=== PATIENT | male | born 1965 | race Caucasian/White ===

== ENCOUNTER → 2021-09-18 08:41 | Outpatient (CLI) | payer BC, SELFPAY ==
--- NOTE | ~2021-09-18 | XR_ITS ---
EXAMINATION: XR hip RT min 2V DATE: 09/18/2021 09:47 INDICATION: Right hip pain TECHNIQUE: Anteroposterior and frog-leg leg lateral views of the right hip were obtained. COMPARISON: None. FINDINGS: Alignment is normal. No fracture or suspected avascular necrosis. Right hip joint space appears relat ively preserved. Small amount of heterotopic ossification along the superolateral rim of the right ac etabulum. Mild osteoarthritis at the bilateral sacroiliac joints. A few phleboliths in the pelvis. IMPRESSION: 1. Likely labral heterotopic ossification along the superolateral rim of the right acetabulum. No acu te osseous abnormality. Reviewed, dictated and finalized at location A. M METER READER IMPRESSION: 1. Likely labral heterotopic ossification along the superolateral rim of the ri ght acetabulum. No acute osseous abnormality.
--- NOTE | ~2021-09-18 | XR_ITS ---
EXAMINATION: XR lumbar spine min 4V DATE: 09/18/2021 09:47 INDICATION: Dorsalgia TECHNIQUE: Anteroposterior, lateral, and bilateral oblique views of the lumbar spine, and cone-down l ateral view of the lumbosacral junction were obtained. COMPARISON: None. FINDINGS: Minimal lumbar levocurvature. Sagittal alignment is normal. Chronic appearing mild anterior wedging a t T12. Lumbar vertebral body and disc heights are normal with mild degenerative endplate changes. No pars interarticularis defects. Mild to moderate lower lumbar predominant facet osteoarthritis. Athero sclerotic calcific lesion along the abdominal aorta. IMPRESSION: 1. Mild to moderate lower lumbar predominant facet osteoarthritis. 2. Chronic appearing mild anterior wedging at T12. Reviewed, dictated and finalized at location A. OR SALES ASSISTANT
== END ==
PROVIDERS: PCP Physician Assistant; Visit Provider Physician Assistant
DX: M25.559 Pain in unspecified hip (principal); M54.9 Dorsalgia, unspecified
CPT/HCPCS: 72110; 73502

== ENCOUNTER → 2022-11-26 08:09 | Outpatient (CLI) | payer BC, SELFPAY ==
--- NOTE | ~2022-11-26 | MR_ITS ---
MRI of the lumbar spine Clinical History: Back pain Technique: Axial T2-weighted images, and sagittal T1-weighted, T2-weighted, and T2 fat-sat images wer e acquired. Findings: There is no fracture or subluxation of the lumbar spine. Vertebral bodies maintain normal h eight and line. No suspicious bone marrow signal abnormality seen. Intraosseous hemangioma noted in t he L3 vertebral body. At L1-L2, there is no disc bulge or herniation. There is minimal facet arthropathy. No spinal canal s tenosis or neural foraminal narrowing. At L2-L3, there is no significant disc bulge or herniation. There is no spinal canal stenosis or neur al foraminal narrowing. At L3-L4, there is mild diffuse disc bulge and minimal facet arthropathy. No spinal canal stenosis or neural foraminal narrowing. At L4-L5, there is diffuse disc bulge and advanced facet arthropathy. There is a left-sided synovial cyst measuring 1.3 x 0.7 x 1.2 cm (axial image 21, sagittal images 9-10). This results in impingement of the exiting left-sided nerve root, and mild to moderate compression of the thecal sac.. There is mild bilateral neural foraminal narrowing otherwise. At L5-S1, there is mild facet arthropathy. No disc bulge or herniation. No spinal canal stenosis or n eural foraminal narrowing. Paravertebral soft tissues are otherwise unremarkable. Impression: Advanced facet arthropathy, disc bulge, and left-sided synovial cyst at the L4-L5 level, as detailed above, which result in impingement of the exiting left-sided nerve root and mild to moderate compress ion of the thecal sac at this level. Additional minimal degenerative changes in the lumbar spine, as above. Reviewed, dictated and finalized at [facility]. Impression: Advanced facet arthropathy, disc bulge, and left-sided synovial cyst at the L4- L5 level, as detailed above, which result in impingement of the exiting left-si ded nerve root and mild to moderate compression of the thecal sac at this level . Additional minimal degenerative changes in the lumbar spine, as above.
--- NOTE | ~2022-11-26 | MR_ITS ---
MRI of the left hip Clinical history: Primary osteoarthritis Technique: Coronal T1-weighted, T2-weighted, and proton-density fat-sat images, and axial T1-weighted and proton-density fat-sat images were acquired through the pelvis. Coronal T2-weighted images and c oronal, axial, and sagittal proton-density fat-sat images were acquired through the left hip. Findings: There is no fracture, avascular necrosis, transient osteoporosis of either hip. Bone marrow signals in the proximal femora and visualized pelvic bones are unremarkable. Articular cartilage in both hip joints is well preserved. There is mild spurring at the superolateral acetabular margins of both hip joints. No acetabular labral tear evident. No joint effusion seen. Visualized musculature about the pelvis is unremarkable. No muscle atrophy or edema. Visualized tendo ns appear intact. No abnormal fluid collection evident. Multiple pathologically enlarged lymph nodes are identified, predominantly along the bilateral germination worker al iliac to common femoral chains, and in the retroperitoneum/periaortic region. Largest index node i s along the right pelvic sidewall measuring 5.8 x 2.2 cm in size (series 6 image 18). Mildly prominen t inguinal lymph nodes are also present, right worse than left. IMPRESSION: No significant osseous or articular abnormality seen. Extensive lymphadenopathy, as detailed above. This is consistent with CLL, which is a known diagnosis for the patient as per the ordering provider. Reviewed, dictated and finalized at [facility]. IMPRESSION: No significant osseous or articular abnormality seen. Extensive lymphadenopathy, as detailed above. This is consistent with CLL, whic h is a known diagnosis for the patient as per the ordering provider.
== END ==
PROVIDERS: PCP Family Medicine; Visit Provider Physician Assistant Surgical
DX: M16.12 Unilateral primary osteoarthritis, left hip (principal); M51.26 Other intervertebral disc displacement, lumbar region
CPT/HCPCS: 72148; 73721

== ENCOUNTER 2023-02-16 07:15 | Outpatient (CLI) | payer BC, SELFPAY ==
--- NOTE | ~2023-02-16 | CT_ITS ---
EXAMINATION: CT chest abdomen pelvis w con DATE: 02/16/2023 07:51 INDICATION: Generalized enlarged lymph nodes TECHNIQUE: Computed tomography (CT) of the chest, abdomen, and pelvis was performed with 100 CC Omnip aque 350 intravenous contrast. Automated exposure control and iterative reconstruction technique were employed. Exam dose: 782.20 mGy-cm total exam DLP. COMPARISON: None FINDINGS: CHEST CT: Mild patchy groundglass density primarily in the dependent upper and lower lobes, likely due to atele ctasis. No pulmonary consolidation or pulmonary mass lesion is noted. Cardiomegaly. No pericardial or pleural effusion. No thoracic aortic aneurysm or dissection. There is mild aortic arch and descending thoracic aortic c alcification. Up to 12 mm cross-section diameter aortopulmonary window lymph node. 9 mm cross-section diameter righ t paratracheal lymph node. Mild bilateral inguinal lymph node prominence. Bilateral axillary lymphadenopathy is noted measuring up to 1.6 cm cross-section diameter on the righ t and 2 cm on the left. ABDOMEN/PELVIS CT: The liver, gallbladder, bile ducts, pancreas, pancreatic duct are unremarkable. There is splenomegaly . The spleen measures up to 13.5 cm vertical dimension. Normal morphology of the adrenal glands. No renal mass lesion or urinary tract calculus or hydroureteronephrosis is evident. There is moderate prostatomegaly and moderate diffuse thickening of the urinary bladder wall. There is atherosclerotic calcification but normal caliber of the abdominal aorta and iliac and femora l arteries. There is extensive lymphadenopathy, including enlarged gastrohepatic, portal, periaortic, aortocaval, mesenteric and common and external iliac lymphadenopathy. Bilateral retroperitoneal nodular densities likely due to lymphadenopathy, measuring up to approximat charli 12.5 mm on the left, 7.5 mm on the right. Mildly prominent bilateral inguinal lymph nodes, largest on the right measuring up to approximately 1 2 mm cross-section diameter. No bowel obstruction, bowel wall thickening, pneumatosis or intraperitoneal free air is detected. Small fat-containing umbilical hernia. No suspicious osteolytic or osteoblastic lesions are noted. IMPRESSION: Extensive lymphadenopathy including bilateral axillary, mild right paratracheal and aort opulmonary window and more prominent gastrohepatic, portal, aortocaval, periaortic, mesenteric, retro peritoneal and common and external iliac and mild inguinal lymphadenopathy, splenomegaly; findings ar e most suggestive of lymphoma, less likely metastatic disease Cardiomegaly Prostatomegaly, moderate diffuse thickening of the urinary bladder wall Reviewed, dictated and finalized at Location A. Reviewed, dictated and finalized at location B. IMPRESSION: Extensive lymphadenopathy including bilateral axillary, mild right paratracheal and aortopulmonary window and more prominent gastrohepatic, sylvie l, aortocaval, periaortic, mesenteric, retroperitoneal and common and external iliac and mild inguinal lymphadenopathy, splenomegaly; findings are most sugges tive of lymphoma, less likely metastatic disease Cardiomegaly Prostatomegaly, moderate diffuse thickening of the urinary bladder wall
== END 2023-02-16 07:16 | disposition home or self-care (01) ==
PROVIDERS: PCP Family Medicine; Visit Provider Family Medicine
DX: R59.1 Generalized enlarged lymph nodes (principal); C91.10 Chronic lymphocytic leukemia of B-cell type not having achieved remission; I51.7 Cardiomegaly; N40.0 Benign prostatic hyperplasia without lower urinary tract symptoms; R93.41 Abnormal radiologic findings on diagnostic imaging of renal pelvis, ureter, or bladder
CPT/HCPCS: 71260; 74177; Q9967

== ENCOUNTER 2023-11-16 00:26 | Day surgery (SDC) | payer BC, SELFPAY ==
[2023-11-07 09:39] VITALS: BMI 28.1
[2023-11-16 07:51] VITALS: BP 139/83; PULSE 84; RESP 18; TEMP 35.9; O2SAT 100
[2023-11-16] MEDS: LACTATED RINGERS 1,000 ML 150 ML IV CONT (08:00)
--- NOTE | 2023-11-16 08:06 | WPDANESEPPF ---
Anes - Initial Pre Proc Eval Procedure: Operation Date: 11/16/23 09:00 Proposed Procedures p Screening Colonoscopy - Srinivas Gonzalez MD Date/Time: 11/16/23 08:06 Surgeon: Srinivas Gonzalez MD Pre Op Diagnosis: hx colon polyps Patient Data Age: 58 Gender: M Height: 1.73 m Weight: 81.9 kg Last Vital Signs Temp 96.7 F L 11/16/23 07:51 Pulse 84 11/16/23 07:51 Resp 18 11/16/23 07:51 BP 139/83 11/16/23 07:51 Pulse Ox 100 11/16/23 07:51 O2 Del Method Room Air 11/16/23 07:51 Allergies Allergy/AdvReac Type Severity Reaction Status Date / Time egg Allergy Severe Anaphylactic Verified 11/16/23 07:46 Shock POULTRY Allergy Severe Anaphylactic Uncoded 11/16/23 07:46 Shock Home Medications Medication Instructions Recorded Confirmed Type alprazolam 0.25 mg tablet (Xanax) 0.25 mg PO BID PRN anxiety #60 tabs 03/03/21 11/07/23 Rx lutein extract 15 mg-zeaxanthin 1 cap PO DAILY 03/03/21 11/07/23 History extract 0.7 mg capsule simvastatin 40 mg tablet 40 mg PO DAILY #90 tabs 12/20/22 11/07/23 Rx lisinopril 10 mg tablet 10 mg PO DAILY #90 tabs 11/01/23 11/07/23 Rx colchicine 0.6 mg tablet 0.6 mg PO BID PRN gout flare 11/07/23 11/07/23 History loratadine-pseudoephedrine ER 10 1 tablet PO DAILY PRN Allergy 11/07/23 11/07/23 History mg-240 mg tablet,extended Symptoms [id number] (Loratadine-D) zolpidem 10 mg tablet (Ambien) 10 mg PO .at night PRN Sleep 11/07/23 11/07/23 History Patient hx anesthesia problems: none Family hx anesthesia problems: none Results Review: All pre-operative results and documents have been reviewed as part of the pre-operative evaluation. [facility] Past Medical History Medical History Anxiety CLL (chronic lymphocytic leukemia) Gout HLD (hyperlipidemia) Hypertension Insomnia Normal colonoscopy (~2018) every 5 years Family History Family History Father Hypertension, Onset Age: 73 Patient's father is , Onset Age: 73 Mother Hypertension, Onset Age: 65 Patient's mother is , Onset Age: 65 Social History Social History Smoking status: Never smoker Second hand tobacco smoke exposure: No Alcohol intake: current Drinks per week: 10 Substance use: never Substance use type: does not use Lack of Transportation: No Lack of Food: Never True Current Housing: I Have Housing Concerned About Future Housing: No Difficulty Paying Gas/Electric Bills: No Difficulty Paying for Meds: No Currently Unemployed: No Education: Master's Degree or Higher Difficulty w/ Childcare or Family Care: No Living arrangements: with family Spiritual care concerns: No Agree to blood products: Yes Anes - Eval Final PreProcedure Day of Procedure 11/16/23 08:06 Patient weight: normal Heart: regular rate and rhythm Lungs: clear to auscultation Airway: Mallampati scale class II Neurological: alert and oriented Last oral intake: >/= 8 hours ASA classification: III Emergent: no Anesthetic plan: proceed Anesthesia type and monitoring: general GIVS and standard monitoring Results Review: All pre-operative results and documents have been reviewed as part of the pre-operative evaluation. Informed Consent: The patient's anesthetic plan and its attendant risks and benefits were discussed with the patient/family/POA. Questions were solicited and answers provided to the satisfaction of the patient/family/POA.
--- NOTE | 2023-11-16 08:41 | PM.HPGS ---
History of Present Illness History of Present Illness Consent: Risks, benefits, and alternatives have been discussed and questions answered. Patient agrees to proceed with procedure. Chief complaint: hx colon polyps Narrative: Valdemar Caballero is a 58 year old male here for colonoscopy, last on 2017, had polyps in the past Review of Systems Review of Systems: All systems reviewed & are unremarkable except as noted in HPI and below PMFSH Past Medical History Medical History (Updated 11/16/23 @ 08:42 by Srinivas Gonzalez MD) Anxiety CLL (chronic lymphocytic leukemia) Colon polyp Gout HLD (hyperlipidemia) Hypertension Insomnia Normal colonoscopy (~2018) every 5 years Family History Family History Father Hypertension, Onset Age: 73 Patient's father is , Onset Age: 73 Mother Hypertension, Onset Age: 65 Patient's mother is , Onset Age: 65 Social History Social History Smoking status: Never smoker Second hand tobacco smoke exposure: No Alcohol intake: current Drinks per week: 10 Substance use: never Substance use type: does not use Lack of Transportation: No Lack of Food: Never True Current Housing: I Have Housing Concerned About Future Housing: No Difficulty Paying Gas/Electric Bills: No Difficulty Paying for Meds: No Currently Unemployed: No Education: Master's Degree or Higher Difficulty w/ Childcare or Family Care: No Living arrangements: with family Spiritual care concerns: No Agree to blood products: Yes Meds Home Medications and Allergies Home Medications Medication Instructions Recorded Confirmed Type alprazolam 0.25 mg tablet (Xanax) 0.25 mg PO BID PRN anxiety #60 tabs 03/03/21 11/07/23 Rx lutein extract 15 mg-zeaxanthin 1 cap PO DAILY 03/03/21 11/07/23 History extract 0.7 mg capsule simvastatin 40 mg tablet 40 mg PO DAILY #90 tabs 12/20/22 11/07/23 Rx lisinopril 10 mg tablet 10 mg PO DAILY #90 tabs 11/01/23 11/07/23 Rx colchicine 0.6 mg tablet 0.6 mg PO BID PRN gout flare 11/07/23 11/07/23 History loratadine-pseudoephedrine ER 10 1 tablet PO DAILY PRN Allergy 11/07/23 11/07/23 History mg-240 mg tablet,extended Symptoms [id number] (Loratadine-D) zolpidem 10 mg tablet (Ambien) 10 mg PO .at night PRN Sleep 11/07/23 11/07/23 History Allergies Allergy/AdvReac Type Severity Reaction Status Date / Time egg Allergy Severe Anaphylactic Verified 11/16/23 07:46 Shock POULTRY Allergy Severe Anaphylactic Uncoded 11/16/23 07:46 Shock Vital Signs Vital Signs - 24 hr 11/16/23 07:51 Temperature 96.7 F L Pulse Rate 84 Respiratory Rate 18 Blood Pressure 139/83 Pulse Oximetry 100 Oxygen Delivery Room Air Exam Const: General: comfortable and no acute distress HENMT: Face/Nose/Sinus: Normal nares present Eyes: General: appearance normal, both eyes and all related structures Neck: Neck: no JVD Resp: Auscultation: clear to auscultation bilaterally Cardio: Rate: regular rate Rhythm: regular rhythm GI: Inspection: non-distended GI Palp: Yes Soft to palpation Skin: General skin exam: normal color Neuro: General: gait normal Speech: normal speech Extrem: General: normal to inspection Psych: Mental Status: mental status grossly normal Assessment and Plan Assessment and plan (1) Colon polyp: Code(s): K63.5 - Polyp of colon Status: Acute Assessment and Plan: colonoscopy
[2023-11-16 08:58] VITALS: BP 93/57; PULSE 73; RESP 20; O2SAT 95
[2023-11-16 09:08] VITALS: BP 103/68; PULSE 67; RESP 15; O2SAT 98
[2023-11-16 09:18] VITALS: BP 111/69; PULSE 70; RESP 19; O2SAT 99
--- NOTE | 2023-11-16 09:37 | SUR.PHASEII ---
computers were down, pt recovered, waiting on discharge papers
== END 2023-11-16 09:35 | disposition home or self-care (01) ==
PROVIDERS: PCP Family Medicine; Visit Provider Internal Medicine Gastroenterology
PROC: 0DJD8ZZ Inspection of Lower Intestinal Tract, Via Natural or Artificial Opening Endoscopic (ICD-10-PCS; CPT 45378; principal; 2023-11-16 09:00)
DX: Z12.11 Encounter for screening for malignant neoplasm of colon (principal); K57.30 Diverticulosis of large intestine without perforation or abscess without bleeding; K64.8 Other hemorrhoids; Z86.010 Personal history of colon polyps; C91.10 Chronic lymphocytic leukemia of B-cell type not having achieved remission; I10 Essential (primary) hypertension; E78.5 Hyperlipidemia, unspecified; F41.9 Anxiety disorder, unspecified; G47.00 Insomnia, unspecified
CPT/HCPCS: 45378; J2704; J7120

== ENCOUNTER 2023-11-17 20:24 | Observation (INO) | payer BC, SELFPAY ==
--- NOTE | ~2023-11-17 | US_ITS ---
EXAMINATION: US joint non vasc comp RT DATE: 11/18/2023 11:57 INDICATION: Right-sided olecranon bursitis. TECHNIQUE: Multiple grayscale ultrasound images of the right upper limb were obtained. COMPARISON: Right elbow MRI 11/18/2023. FINDINGS: There is subcutaneous edema overlying the olecranon, consistent with bursitis. No drainable fluid. IMPRESSION: 1. Olecranon bursitis. No drainable fluid. The drainage procedure was canceled. Reviewed, dictated and finalized at location A.
--- NOTE | ~2023-11-17 | XR_ITS ---
EXAMINATION: XR elbow RT min 3V DATE: 11/17/2023 22:55 INDICATION: Right elbow soft tissue swelling. TECHNIQUE: 4 views of right elbow were obtained. COMPARISON: Radiographs 12/10/2015 FINDINGS: Bone alignment is normal. No fracture. Joint spaces are normal. No elbow joint effusion. Th ere is soft tissue swelling overlying olecranon. IMPRESSION: 1. Soft tissue swelling overlying olecranon, consistent with bursitis. Reviewed, dictated and finalized at location E.
--- NOTE | ~2023-11-17 | MR_ITS ---
EXAMINATION: MR elbow RT wo con DATE: 11/18/2023 10:43 INDICATION: Right olecranon bursitis. TECHNIQUE: Magnetic resonance imaging (MRI) of the right elbow was performed without intravenous cont rast. Sequences included coronal, axial, and sagittal PD-weighted FS FSE and coronal, axial, and sagi ttal PD-weighted FSE. COMPARISON: Radiographs 11/17/2023 FINDINGS: Osseous/other: Bone alignment is normal. No fracture. There is cartilage surface irregularity in the elbow joint. Tendons: The biceps tendon and brachialis tendon are normal. There is mild tendinopathy of the common extensor tendon and common flexor tendon. No tear. Ligaments: Radial collateral ligament, lateral ulnar collateral ligament, and ulnar collateral ligament are norm al. Cubital tunnel: The ulnar nerve is normal. Fluid: There is no knee joint effusion. There is extensive subcutaneous edema posterior to the elbow, consis tent with bursitis. IMPRESSION: 1. Olecranon bursitis. Reviewed, dictated and finalized at location A. IMPRESSION: 1. Olecranon bursitis.
[2023-11-17 20:33] VITALS: BP 145/86; PULSE 79; RESP 18; TEMP 36.4; O2SAT 100
[2023-11-17 22:40] LABS: Hematocrit 42.2 % (42.0-52.0); Mean Corpuscular HGB Conc 33.2 g/dl (32-36); Mean Corpuscular Hemoglobin 29.4 pg (26-34); Mean Corpuscular Volume 88.5 fl (80-100); Mean Platelet Volume 8.7 fl (7.4-10.4); Platelet Count Result 168 k/mm3 (150-375); Red Blood Count 4.77 M/mm3 (4.6-6.20); Red Cell Distribution Width 13.7 % (11.5-14.5)
--- NOTE | 2023-11-17 22:44 | ED.SKABFB ---
HPI - Skin/Abscess/Foreign Bdy General Chief complaint: Skin/Abscess/Foreign Body <Caroline Us PA-C - Last Filed: 11/18/23 02:32> Stated complaint: swollen elbow <Caroline Us PA-C - Last Filed: 11/18/23 02:32> Time Seen by Provider: 11/17/23 21:22 <Caroline sU PA-C - Last Filed: 11/18/23 02:32> History of Present Illness HPI narrative: 58-year-old male with history of CLL, hypertension, hyperlipidemia presents to emergency department for right elbow swelling and pain that started today. Patient's assists with history. States approximately 1-2 weeks ago the patient was outside working on yard work when he caused a superficial abrasion to his right elbow. States he has been treating with antibiotic ointment with improvement, however today the patient noticed increased pain, swelling and redness to this area with associated warmth. He does endorse a history of bursitis to the elbow but states he does not believe it was inflamed prior to today. He denies fever, nausea or vomiting. He is not currently undergoing treatment for CLL. <Caroline Us PA-C - Last Filed: 11/18/23 02:32> Related Data Home medications: Home Medications Medication Instructions Recorded Confirmed lutein extract 15 mg-zeaxanthin 1 cap PO DAILY 03/03/21 11/07/23 extract 0.7 mg capsule colchicine 0.6 mg tablet 0.6 mg PO BID PRN gout flare 11/07/23 11/07/23 loratadine-pseudoephedrine ER 10 1 tablet PO DAILY PRN Allergy 11/07/23 11/07/23 mg-240 mg tablet,extended Symptoms [id number] (Loratadine-D) zolpidem 10 mg tablet (Ambien) 10 mg PO .at night PRN Sleep 11/07/23 11/07/23 <Caroline Us PA-C - Last Filed: 11/18/23 02:32> Allergies/Adverse reactions: Allergies Allergy/AdvReac Type Severity Reaction Status Date / Time egg Allergy Severe Anaphylactic Verified 11/17/23 20:25 Shock POULTRY Allergy Severe Anaphylactic Uncoded 11/17/23 20:25 Shock zosyn Allergy Intermediate itchy Uncoded 11/18/23 01:55 <Caroline Us PA-C - Last Filed: 11/18/23 02:32> Review of Systems Review of Systems: CONSTITUTIONAL: Denies fever, chills, or sweats. EYES: Denies visual changes, redness, or discharge. ENT: Denies rhinorrhea, congestion, sore throat, or otalgia. CARDIOVASCULAR: Denies chest pain, palpitations, or edema. RESPIRATORY: Denies cough or dyspnea. GASTROINTESTINAL: Denies abdominal pain, nausea, vomiting, or diarrhea. GENITOURINARY: Denies dysuria or hematuria. SKIN: Denies rash or itching. MUSCULOSKELETAL: See HPI NEUROLOGIC: Denies headache, numbness, or weakness. PSYCHIATRIC: Denies anxiety or depression. <Caroline Us PA-C - Last Filed: 11/18/23 02:32> [facility] Past Medical History Medical History: Medical History Anxiety CLL (chronic lymphocytic leukemia) Colon polyp Gout HLD (hyperlipidemia) Hypertension Insomnia Normal colonoscopy (~2018) every 5 years <Caroline Us PA-C - Last Filed: 11/18/23 02:32> Family History Family History: Family History Father Hypertension, Onset Age: 73 Patient's father is , Onset Age: 73 Mother Hypertension, Onset Age: 65 Patient's mother is , Onset Age: 65 <Caroline Us PA-C - Last Filed: 11/18/23 02:32> Social History Social History: Social History Smoking status: Never smoker Second hand tobacco smoke exposure: No Alcohol intake: current Drinks per week: 10 Substance use: never Substance use type: does not use Lack of Transportation: No Lack of Food: Never True Current Housing: I Have Housing Concerned About Future Housing: No Difficulty Paying Gas/Electric Bills: No Difficulty Paying for Meds: No Currently Unemployed: No Education:
[2023-11-17 22:54] LABS: Anion Gap 7 mmol/L (4-12); Blood Urea Nitrogen 13 mg/dL (9-20); CRP < 0.5 mg/dL (<1.0); Calcium 9.6 mg/dL (8.4-10.2); Carbon Dioxide 27 mmol/L (22-30); Chloride 99 mmol/L (98-107); Estimated CRCL calculation 67 ml/min; Estimated Glomerular Filt Rate > 60; Glucose 103 mg/dL (65-110); Potassium 5.3 mmol/L (3.4-5.0); Sodium 133 mmol/L (137-145)
[2023-11-17 23:12] LABS: Band Neutrophils Percent 2 % (0-6); Lymphocytes Absolute Manual 93.48 K/mm3 (1.1-4.5); Lymphocytes Percent Manual 82 % (18-44); Monocytes Percent Manual 10 % (3-9); Neutrophils Absolute Manual 9.12 K/mm3 (1.3-6.7); Neutrophils Percent Manual 6 % (46-73); Total Cells Counted 100
[2023-11-17 23:13] LABS: Anisocytosis 1+; Platelet Estimate Adequate (Adequate); Schistocytes None Seen
[2023-11-17 23:28] LABS: Erythrocyte Sedimentation Rate 1 mm/hr (0-20)
[2023-11-18 00:02] VITALS: BP 141/78; PULSE 72; RESP 17; O2SAT 99
--- NOTE | 2023-11-18 00:50 | PC.NURSE ---
LET applied at this time. Tegaderm placed over let topical. DORA Velazquez made aware.
[2023-11-18] MEDS: LIDOCAINE, EPINEPHRINE, TETRACAINE VISCOUS SOLN 3 ML TOPICAL (00:56)
--- NOTE | 2023-11-18 00:56 | PC.NURSE ---
Pt moved from room 21 to room 9.
[2023-11-18 01:22] VITALS: BP 144/89; PULSE 80; RESP 16; O2SAT 100
[2023-11-18] MEDS: PIPERACILLN/TAZ 3.375GM/NS50ML 3.375 GM/50 ML BAG IVPB (01:44)
[2023-11-18] MEDS: diphenhydrAMINE HCl INJ 50 MG/ML VIAL 25 MG IV PUSH (01:57)
[2023-11-18] MEDS: methylPREDNISolone SOD SUCC 125 MG VIAL IV PUSH (01:57)
[2023-11-18] MEDS: FAMOTIDINE 20 MG/2 ML VIAL IV PUSH (01:58)
--- NOTE | 2023-11-18 01:59 | PC.NURSE ---
Patient states that it was hard to breath and his throat felt itchy while the Zosyn was going. Patient states that his only known allergy is poultry. Patient also states that he has had penicillins shots before w/o reactions. Zosyn was finished when nursing staff went in room to assess. Notified EDP MALATHI Velazquez, who VRBO Pepcid 20mg IVP, Benadryl 25mg IVP, and Solu-medral 125mg IVP.
--- NOTE | 2023-11-18 02:06 | PC.NURSE ---
Patient states that the tickling in his throat and the difficulty breathing are getting better.
--- NOTE | 2023-11-18 02:40 | PC.NURSE ---
Patient states that he feels like his legs are very restless. Patient states that he has restless leg syndrome, but does not take anything for it. Notified EDP MALATHI Velazquez.
[2023-11-18] MEDS: rOPINIRole HCL 0.25 MG TABLET PO (02:42)
[2023-11-18] MEDS: VANCOMYCIN 2,000 MG/NS 500 ML 2,000 MG/500 ML BAG 250 MG IVPB (03:00)
[2023-11-18 03:10] VITALS: BP 145/85; PULSE 89; RESP 22; O2SAT 98
--- NOTE | 2023-11-18 03:28 | ADMGEN ---
This patient, Valdemar Caballero, was admitted to Medical Room 345-01. Patient/family oriented to hospital policies and general routines including ID bracelet, bed and alarms, visiting hours, pain management, procedures, bathroom and other care routines, personal items, smoking policy, room service/diet, and visiting hours. Information on how to activate the Rapid Response Team has been discussed. Patient/Family are encouraged to report perceived risks to care and to ask questions if they do not understand what they are told or what they should do.
[2023-11-18 03:51] VITALS: BMI 28.1
[2023-11-18 06:00] VITALS: BP 184/80; PULSE 89; RESP 20; TEMP 36.5; O2SAT 99
[2023-11-18 07:26] LABS: Basophils Absolute Auto 0.2 K/mm3 (0.0-0.1); Basophils Percent Auto 0.2 % (0.2-1.2); Hematocrit 40.6 % (42.0-52.0); Hemoglobin 13.2 g/dL (14.0-18.0); Immature Granulocyte Absolute 0.36 K/mm3 (0.00-0.031); Immature Granulocyte Percent A 0.3 % (0-0.5); Lymphocytes Percent Auto 83.8 % (18.3-44.2); Mean Corpuscular HGB Conc 32.5 g/dl (32-36); Mean Corpuscular Hemoglobin 29.1 pg (26-34); Mean Corpuscular Volume 89.4 fl (80-100); Monocytes Absolute Auto 9.5 K/mm3 (0.1-0.6); Monocytes Percent Auto 8.5 % (2.6-8.5); Neutrophils Absolute Auto 8.1 K/mm3 (1.3-6.7); Neutrophils Percent Auto 7.2 % (45.5-73.1); Platelet Count Result 167 k/mm3 (150-375); Red Blood Count 4.54 M/mm3 (4.6-6.20); Red Cell Distribution Width 13.7 % (11.5-14.5)
[2023-11-18 07:29] LABS: White Blood Count 112.4 K/mm3 (4.5-10.0)
[2023-11-18 07:43] LABS: Alanine Aminotransferase 51 U/L (6-50); Albumin Level 4.5 g/dL (3.5-5.1); Alkaline Phosphatase 62 U/L (38-126); Anion Gap 5 mmol/L (4-12); Aspartate Amino Transferase 43 U/L (17-59); Bilirubin,Total 0.6 mg/dL (0.2-1.3); Blood Urea Nitrogen 11 mg/dL (9-20); Calcium 8.9 mg/dL (8.4-10.2); Carbon Dioxide 25 mmol/L (22-30); Chloride 100 mmol/L (98-107); Estimated CRCL calculation 67 ml/min; Estimated Glomerular Filt Rate > 60; Glucose 170 mg/dL (65-110); Sodium 130 mmol/L (137-145)
[2023-11-18] MEDS: SIMVASTATIN 20 MG TABLET 40 MG PO (09:17)
[2023-11-18] MEDS: SODIUM POLYSTYRENE SULFONONATE 15 GM/60 ML BTL PO (09:18)
[2023-11-18] MEDS: lisinopriL 10 MG TABLET PO (09:18)
--- NOTE | 2023-11-18 12:06 | PM.IMHP ---
H&P: HPI History of Present Illness Date/Time: 11/18/23 12:06 Chief Complaint: Patient 58-year-old male with PMH of CLL, hypertension, hyperlipidemia admitted for right elbow swelling and pain that started yesterday. Patient's at bedside says that he was treating at home and it appeared to be healed until the redness and swelling started yesterday. He had an outpatient colonoscopy 11/16/23, but other than that has had no procedures or exposures. States approximately 1-2 weeks ago the patient was outside working on yard work when he caused a superficial abrasion to his right elbow. He does endorse a history of bursitis to the elbow and prior nerve damage making it difficult for his to have feeling along the backside of his arm. He reports some tingling to his right hand yesterday, but believes it could have been from swelling as he has known nerve damage. He denies fever, chills, or other symptoms. He is not currently undergoing treatment for CLL, possibly to start in the fall. Review of Systems Review of Systems: All systems reviewed & are unremarkable except as noted in HPI and below PMFSH Past Medical History Medical History Anxiety CLL (chronic lymphocytic leukemia) Colon polyp Gout HLD (hyperlipidemia) Hypertension Insomnia Normal colonoscopy (~2017) every 5 years Family History Family History Father Patient's father is , Onset Age: 73 Hypertension, Onset Age: 73 Mother Hypertension, Onset Age: 65 Social History Social History Smoking status: Never smoker Second hand tobacco smoke exposure: No Alcohol intake: current Drinks per week: 10 Substance use: never Substance use type: does not use Do You Feel Safe in your Home?: Yes Lack of Transportation: No Lack of Food: Never True Current Housing: I Have Housing Concerned About Future Housing: No Difficulty Paying Gas/Electric Bills: No Difficulty Paying for Meds: No Currently Unemployed: No Education: Master's Degree or Higher Difficulty w/ Childcare or Family Care: No Living arrangements: with family Spiritual care concerns: No Agree to blood products: Yes Meds Home Medications and Allergies Home Medications Medication Instructions Recorded Confirmed Type alprazolam 0.25 mg tablet (Xanax) 0.25 mg PO BID PRN anxiety #60 tabs 03/03/21 11/18/23 Rx lutein extract 15 mg-zeaxanthin 1 cap PO DAILY 03/03/21 11/18/23 History extract 0.7 mg capsule simvastatin 40 mg tablet 40 mg PO DAILY #90 tabs 12/20/22 11/18/23 Rx lisinopril 10 mg tablet 10 mg PO DAILY #90 tabs 11/01/23 11/18/23 Rx loratadine-pseudoephedrine ER 10 1 tablet PO DAILY PRN Allergy 11/07/23 11/18/23 History mg-240 mg tablet,extended Symptoms [id number] (Loratadine-D) zolpidem 10 mg tablet (Ambien) 10 mg PO .at night PRN Sleep 11/07/23 11/18/23 History Allergies Allergy/AdvReac Type Severity Reaction Status Date / Time chicken derived Allergy Severe Anaphylactic Verified 11/18/23 07:34 Shock egg Allergy Severe Anaphylactic Verified 11/17/23 20:25 Shock piperacillin [From Zosyn] Allergy Severe Itching, Verified 11/18/23 07:34 THROAT SWELLING tazobactam [From Zosyn] Allergy Severe Itching, Verified 11/18/23 07:34 THROAT SWELLING POULTRY Allergy Severe Anaphylactic Uncoded 11/17/23 20:25 Shock Vital Signs Vital Signs - 24 hr 11/17/23 20:33 11/18/23 00:02 11/18/23 01:22 Temperature 97.5 F L Pulse Rate 79 72 80 Respiratory Rate 18 17 16 Blood Pressure 145/86 H 141/78 H 144/89 H Pulse Oximetry 100 99 100 Oxygen Delivery Room Air 11/18/23 03:10 11/18/23 03:54 11/18/23 06:00 Temperature 97.7 F Pulse Rate 89 89 Respiratory Rate 22 H 20 Blood Pressure 145/85 H 184/80 H Pulse Oximetry 98 9
[2023-11-18] MEDS: SODIUM CHLORIDE 1 GM TABLET PO (13:19)
[2023-11-18] MEDS: cefTRIAXone 2 GM/NS 100 ML 2 GM/100 ML BAG IVPB (13:19)
[2023-11-18 14:00] VITALS: BP 143/74; PULSE 94; RESP 20; TEMP 37; O2SAT 96
--- NOTE | 2023-11-18 17:05 | PM.CNOR ---
Assessment and Plan Assessment and plan (1) Bursitis of right elbow: Qualifiers: Elbow bursitis location: olecranon bursitis Qualified Code(s): M70.21 - Olecranon bursitis, right elbow Code(s): M70.31 - Other bursitis of elbow, right elbow Status: Acute Assessment and Plan: Patient is a 58-year-old gentleman who presented the emergency room last night with rather pronounced cellulitis and edema in the posterior aspect of his elbow extending at least correction down the posterior forearm. The swelling and edema started yesterday morning. Approximately 2 weeks earlier he somehow sustained an abrasion over the point of the olecranon and treated that with antibiotic ointment. It seemed to be healing uneventfully until this yesterday morning. He has a history of numbness in the posterior arm and throughout the forearm worse in the volar forearm but sparing his fingers. 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 Initially the arm was paralyzed but much of the motor function came back and he does have some residual weakness but in the hand only dorsiflexion of the thumb is weak. He reports normal light touch sensation of the 5 digits in his right hand. His past medical history is significant for chronic lymphocytic leukemia. His white count on admission was 112,000. Interestingly, his C-reactive protein was normal as well as a sedimentation rate measuring less than 0.5 and 1 respectively. I suspect he may have impairment in his immune response. When he presented the emergency room as described by the patient and his to me today, there was an area of deep red over the point the lack for non about inch and half in diameter and about a 3 or 4 in area of light pink erythema around that and then diffuse edema and swelling. He had an MRI scan that showed diffuse soft tissue edema the posterior subcutaneous tissues around the right elbow. I asked Radiology to aspirate the olecranon bursa if a fluid pocket was identified and under ultrasound there was no fluid pocket identifiable so was not aspirated. Before antibiotics were started he did have 2 blood cultures drawn last night and he was admitted. He was started on vancomycin and Zosyn was ordered but he had immediate allergic reaction to the Zosyn which manifested as itching sensation in his throat and nose with watery nose and watery eyes. He has a long history of similar allergic reactions to eggs and check its to which she is very sensitized. He also has seasonal pollen allergies. He has no other known history of allergy to antibiotic. I started him on ceftriaxone this afternoon after the radiologist had completed the ultrasound procedure ruling out an aspirate double fluid collection and he tolerated the 2 g dose without any untoward reaction. I have discussed with him that there is no known increased risk of having the large reaction to a cephalosporin in patients who had allergic reaction to penicillin other than the increased risk of someone who has atopia having in general increased risk of allergic reaction to any antibiotic. On exam he has full range of motion was elbow. MRI scan showed no effusion the elbow ruling out joint infection. He does not have any tenderness over the posterior elbow but he has numbness in this distribution because of his brachial plexus injury. The abrasion that he sustained 2 weeks ago he did not feel that he noticed blood on his bed sheets and the identified the abrasion by looking at the elbow and the mere. 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 Today he had a houl[place] of peeling epithelium approximately 2/3 inch in diameter and at the center of this there was a 5 mm eschar that is very superficial which
[2023-11-18] MEDS: VANCOMYCIN 1,500 MG/NS 500 ML 1,500 MG/500 ML BAG 250 MG IVPB (20:45)
[2023-11-18 22:00] VITALS: BP 142/76; PULSE 94; RESP 16; TEMP 36.6; O2SAT 95
[2023-11-19 05:58] LABS: Basophils Absolute Auto 0.2 K/mm3 (0.0-0.1); Basophils Percent Auto 0.2 % (0.2-1.2); Hematocrit 36.7 % (42.0-52.0); Immature Granulocyte Absolute 0.45 K/mm3 (0.00-0.031); Immature Granulocyte Percent A 0.4 % (0-0.5); Lymphocytes Percent Auto 80.9 % (18.3-44.2); Mean Corpuscular HGB Conc 32.7 g/dl (32-36); Mean Corpuscular Hemoglobin 29.3 pg (26-34); Mean Corpuscular Volume 89.5 fl (80-100); Mean Platelet Volume 8.8 fl (7.4-10.4); Monocytes Absolute Auto 13.1 K/mm3 (0.1-0.6); Monocytes Percent Auto 11.3 % (2.6-8.5); Neutrophils Absolute Auto 8.3 K/mm3 (1.3-6.7); Neutrophils Percent Auto 7.2 % (45.5-73.1); Platelet Count Result 154 k/mm3 (150-375); Red Cell Distribution Width 13.7 % (11.5-14.5)
[2023-11-19 06:00] VITALS: BP 129/62; PULSE 81; RESP 16; TEMP 36.7; O2SAT 95
[2023-11-19 06:15] LABS: Anion Gap 6 mmol/L (4-12); Blood Urea Nitrogen 16 mg/dL (9-20); Calcium 8.9 mg/dL (8.4-10.2); Carbon Dioxide 25 mmol/L (22-30); Chloride 103 mmol/L (98-107); Estimated CRCL calculation 74 ml/min; Estimated Glomerular Filt Rate > 60; Glucose 110 mg/dL (65-110); Potassium 4.4 mmol/L (3.4-5.0); Sodium 134 mmol/L (137-145)
[2023-11-19 07:04] LABS: Atypical Lymphocytes Present; Platelet Estimate Adequate (Adequate); Schistocytes None Seen; Smudge Cells MANY
[2023-11-19] MEDS: lisinopriL 10 MG TABLET PO (08:57)
[2023-11-19] MEDS: SIMVASTATIN 20 MG TABLET 40 MG PO (08:57)
[2023-11-19] MEDS: cefTRIAXone 2 GM/NS 100 ML 2 GM/100 ML BAG IVPB (08:58)
--- NOTE | 2023-11-19 11:11 | PM.PNORT ---
Progress Note: A&P Assessment and Plan (1) Bursitis of right elbow: Qualifiers: Elbow bursitis location: olecranon bursitis Qualified Code(s): M70.21 - Olecranon bursitis, right elbow Code(s): M70.31 - Other bursitis of elbow, right elbow Status: Acute Assessment and Plan: Edema is less today at the right elbow. Erythema is minimal only in the central 1 in around the healed abrasion area. He is having minimal discomfort. I have discussed with him that oral antibiotics may not adequately control the infection and if he starts getting worse he will have to come back to the emergency room. If that occurred we would likely be able to aspirate fluid as if he fails antibiotic treatment that is usually because a purulent abscess has formed. This was explained to him and he is agreeable with that plan. We will send him home on doxycycline to cover MRSA staph and general broad-spectrum coverage. I have answered all of his questions. Subjective Subjective Date/Time Seen: 11/19/23 11:11 Objective Data Vital Signs Vital Signs: Vital Signs - 24 hr 11/18/23 14:00 11/18/23 22:00 11/18/23 20:00 Temperature 37.0 C 36.6 C Pulse Rate 94 94 Respiratory Rate 20 16 Blood Pressure 143/74 H 142/76 H Pulse Oximetry 96 95 Oxygen Delivery Room Air 11/19/23 06:00 Temperature 36.7 C Pulse Rate 81 Respiratory Rate 16 Blood Pressure 129/62 Pulse Oximetry 95 Oxygen Delivery Intake/Output Intake/Output: Intake & Output 11/16/23 11/17/23 11/18/23 11/19/23 23:59 23:59 23:59 23:59 Intake Total 2350 980 Balance 2350 980 Meds/Results Medications: Active Medications Generic Name Dose Route Start Last Admin Trade Name Freq PRN Reason Stop Dose Admin Al Hydrox/Mg Hydrox/Simethicone 30 ml 11/18/23 08:00 Mag Hydrox/Al Hydrox/Simeth 30 Ml Udc PO QID PRN Dyspepsia Alprazolam 0.25 mg 11/18/23 07:53 Alprazolam (*Crx) 0.25 Mg Tablet PO BID PRN anxiety Vancomycin HCl 1,500 mg in 500 mls @ 250 mls/hr 11/18/23 21:00 11/18/23 22:45 Vancomycin 1,500 Mg/Ns 500 Ml IVPB Infused Q18H MAGED Infusion Ceftriaxone Sodium 2 gm in 100 mls @ 200 mls/hr 11/18/23 12:30 11/19/23 08:58 Rocephin 2 Gm/Ns 100 Ml IVPB 200 mls/hr QAM MAGED Administration Lisinopril 10 mg 11/18/23 09:00 11/19/23 08:57 Lisinopril 10 Mg Tablet PO 10 mg DAILY MAGED Administration Loratadine/Pseudoephedrine Sulfate 1 tab 11/18/23 07:53 Loratadine/Pseudoephedrine (*Crx) 10/240 Mg Tablet Er 24 Hr PO DAILY PRN Allergy Symptoms Ondansetron HCl 4 mg 11/18/23 08:00 Ondansetron Inj 4 Mg/2 Ml Vial IV PUSH Q6H PRN Nausea And Vomiting Simvastatin 40 mg 11/18/23 09:00 11/19/23 08:57 Simvastatin 20 Mg Tablet PO 40 mg DAILY MAGED Administration Zolpidem Tartrate 10 mg 11/18/23 21:00 Zolpidem Tartrate (*Crx) 5 Mg Tablet PO HS PRN Sleep Radiology Results: ITS Impressions Elbow X-Ray 11/17/23 22:59 IMPRESSION: 1. Soft tissue swelling overlying olecranon, consistent with bursitis. Elbow MRI 11/18/23 11:02 IMPRESSION: 1. Olecranon bursitis. Extremity Ultrasound 11/18/23 12:25 IMPRESSION: 1. Olecranon bursitis. No drainable fluid. The drainage procedure was canceled. Labs Labs: Laboratory Results - last 24 hr 11/19/23 05:48 WBC 116.0 H* RBC 4.10 L Hgb 12.0 L Hct 36.7 L MCV 89.5 MCH 29.3 MCHC 32.7 RDW 13.7 Plt Count 154 MPV 8.8 Immature Gran % (Auto) 0.4 Neut % (Auto) 7.2 L Lymph % (Auto) 80.[address] [place] % (Auto) 11.3 H Eos % (Auto) 0.0 Baso % (Auto) 0.2 Lymph # (Auto) 93.[address] [place] # (Auto) 13.1 H Eos # (Auto) 0.0 Baso # (Auto) 0.2 H Abs Immat Gran (auto) 0.45 H Absolute Neuts (auto) 8.3 H Absolute Nucleated RBC 0.000 Nucleated RBC % 0.0 Atypical Lymphocytes Present Smudge Cells Many Platelet Estimate Adequate Schistocytes None seen Sodium 134
--- NOTE | 2023-11-19 14:39 | PM.IMPN ---
Progress Note: A&P Assessment and Plan (1) Cellulitis: Qualifiers: Laterality: right Site of cellulitis: extremity Site of cellulitis of extremity: upper extremity Qualified Code(s): L03.113 - Cellulitis of right upper limb Code(s): L03.90 - Cellulitis, unspecified Status: Acute Assessment and Plan: Vancomycin Zosyn d/c after ER dose given and patient had reaction BC pending unable to drain fluid as there was not enough present on US concerned for skin infection, continue vanc for one more dose, will discharge pt tomorrow (2) CLL (chronic lymphocytic leukemia): Code(s): C91.10 - Chronic lymphocytic leukemia of B-cell type not having achieved remission Status: Chronic Assessment and Plan: diagnosed in 2014 has not yet started treatment WBC 116 this morning which is consistent (3) Hypertension: Qualifiers: Hypertension type: primary hypertension Qualified Code(s): I10 - Essential (primary) hypertension Code(s): I10 - Essential (primary) hypertension Status: Chronic Assessment and Plan: continue home meds (4) HLD (hyperlipidemia): Qualifiers: Hyperlipidemia type: unspecified Qualified Code(s): E78.5 - Hyperlipidemia, unspecified Code(s): E78.5 - Hyperlipidemia, unspecified Status: Chronic Assessment and Plan: continue home meds (5) Bursitis of right elbow: Qualifiers: Elbow bursitis location: olecranon bursitis Qualified Code(s): M70.21 - Olecranon bursitis, right elbow Code(s): M70.31 - Other bursitis of elbow, right elbow Status: Acute Assessment and Plan: Elbow x-ray showed soft tissue swelling overlying the olecranon, consistent with bursitis MRI showed olecranon bursitis Ortho consulted Subjective Date/time seen: 11/19/23 14:39 Review of Systems Review of Systems: All systems reviewed & are unremarkable except as noted in HPI and below Exam Narrative: GENERAL: Well-appearing, well-nourished, and in no acute distress. HEAD: Normocephalic, atraumatic. PERRLA, EOMI NECK: Supple. CHEST: Clear to auscultation. No respiratory distress. HEART: RRR. No murmur heard. Normal peripheral pulses. EXTREMITIES: RUE: Healing superficial abrasion overlying the right olecranon with surrounding warmth and erythema. Diffuse edema to the elbow is extending distally down the medial aspect of the proximal forearm. Erythema and warmth only present over the olecranon. Radial pulse 2 +. Sensation intact. Patient has full active and passive range of motion without difficulty or pain. SKIN: Warm, dry, no rash. NEURO: No focal deficits. Alert and oriented x3 Objective Data Vital Signs Vital Signs: Vital Signs - 24 hr 11/18/23 22:00 11/18/23 20:00 11/19/23 06:00 Temperature 97.8 F 98.1 F Pulse Rate 94 81 Respiratory Rate 16 16 Blood Pressure 142/76 H 129/62 Pulse Oximetry 95 95 Oxygen Delivery Room Air 11/19/23 09:00 Temperature Pulse Rate Respiratory Rate Blood Pressure Pulse Oximetry Oxygen Delivery Room Air Intake/Output Intake/Output: Intake & Output 11/16/23 11/17/23 11/18/23 11/19/23 23:59 23:59 23:59 23:59 Intake Total 2350 1100 Balance 2350 1100 Meds/Results Medications: Active Medications Generic Name Dose Route Start Last Admin Trade Name Freq PRN Reason Stop Dose Admin Al Hydrox/Mg Hydrox/Simethicone 30 ml 11/18/23 08:00 Mag Hydrox/Al Hydrox/Simeth 30 Ml Udc PO QID PRN Dyspepsia Alprazolam 0.25 mg 11/18/23 07:53 Alprazolam (*Crx) 0.25 Mg Tablet PO BID PRN anxiety Vancomycin HCl 1,500 mg in 500 mls @ 250 mls/hr 11/18/23 21:00 11/18/23 22:45 Vancomycin 1,500 Mg/Ns 500 Ml IVPB Infused Q18H MAGED Infusion Ceftriaxone Sodium 2 gm in 100 mls @ 200 mls/hr 11/18/23 12:30 11/19/23 08:58 Rocephin 2 Gm/Ns 100 Ml IVPB 200 mls/hr QAM MAGED Administrat
[2023-11-19 14:42] VITALS: BP 154/77; PULSE 80; RESP 17; TEMP 36.6; O2SAT 99
[2023-11-19 14:59] LABS: Vancomycin Trough 6.4 ug/mL (10.0-20.0)
[2023-11-19] MEDS: VANCOMYCIN 2,000 MG/NS 500 ML 2,000 MG/500 ML BAG 250 MG IVPB (16:15)
[2023-11-19 20:53] VITALS: BP 147/77; PULSE 84; RESP 18; TEMP 37.1; O2SAT 97
[2023-11-20] MEDS: VANCOMYCIN 2,000 MG/NS 500 ML 2,000 MG/500 ML BAG 250 MG IVPB (04:48)
[2023-11-20 05:34] VITALS: BP 136/85; PULSE 87; RESP 18; TEMP 36.8; O2SAT 97
[2023-11-20 06:27] LABS: Estimated CRCL calculation 67 ml/min; Estimated Glomerular Filt Rate > 60
--- NOTE | 2023-11-20 08:50 | PM.DS ---
DS: Admitting Diagnosis Discharge Date 11/20/23 Admitting Diagnosis Bursitis right elbow DS: Discharge Diagnosis Discharge Diagnosis (1) Bursitis of right elbow: Qualifiers: Elbow bursitis location: olecranon bursitis Qualified Code(s): M70.21 - Olecranon bursitis, right elbow Code(s): M70.31 - Other bursitis of elbow, right elbow Status: Acute (2) CLL (chronic lymphocytic leukemia): Code(s): C91.10 - Chronic lymphocytic leukemia of B-cell type not having achieved remission Status: Chronic DS: Summary Hospital Course Reason for hospitalization: 58-year-old male with PMHx: Of CLL, HTN, hyperlipidemia admitted below her right elbow swelling and pain. Hospital Course: Patient reported approximately 1-2 weeks ago he was working outside in the yard when he encountered a superficial abrasion to his right elbow, he endorses a history of bursitis to the right elbow as well as prior nerve damage from multiple injuries. Status at Discharge Functional status at discharge: independent ambulation Overall status at discharge: patient is progressing back to baseline Time Spent with Patient Time attestation: Total time spent providing and/or coordinating discharge services: Time spent: Less than 30 minutes Exam Narrative: GENERAL: Well-appearing, well-nourished, and in no acute distress. HEAD: Normocephalic, atraumatic. PERRLA, EOMI NECK: Supple. CHEST: Clear to auscultation. No respiratory distress. HEART: RRR. No murmur heard. Normal peripheral pulses. EXTREMITIES: RUE: Healing superficial abrasion overlying the right olecranon with surrounding warmth and erythema. Diffuse edema to the elbow is extending distally down the medial aspect of the proximal forearm. continued Erythema and warmth only present over the olecranon. Radial pulse 2 +. Sensation intact. Patient has full active and passive range of motion without difficulty or pain. SKIN: Warm, dry, no rash. NEURO: No focal deficits. Alert and oriented x3 DS: Data Data Completed and Pending Labs on day of discharge: Labs from last 24 hours 11/20/23 11/19/23 05:56 14:12 Creatinine 1.00 Estim Creat Clear Calc 67 Estimated GFR > 60 Vancomycin Trough 6.4 L Preliminary micro results at discharge 11/18/23 00:47 Blood Culture - Preliminary Blood 11/18/23 00:47 Blood Culture - Preliminary Blood Procedures/Treatments: EXAMINATION: US joint non vasc comp RT DATE:? 11/18/2023 11:57 INDICATION: Right-sided olecranon bursitis. TECHNIQUE: Multiple grayscale ultrasound images of the right upper limb were obtained. COMPARISON: Right elbow MRI 11/18/2023. FINDINGS: There is subcutaneous edema overlying the olecranon, consistent with bursitis. No drainable fluid. IMPRESSION: 1. Olecranon bursitis. No drainable fluid. The drainage procedure was canceled. Imaging Radiologist's impression: EXAMINATION: MR elbow RT wo con DATE: 11/18/2023 10:43 INDICATION: Right olecranon bursitis. TECHNIQUE: Magnetic resonance imaging (MRI) of the right elbow was performed without intravenous contrast. Sequences included coronal, axial, and sagittal PD-weighted FS FSE and coronal, axial, and sagittal PD-weighted FSE. COMPARISON: Radiographs 11/17/2023 FINDINGS: Osseous/other: Bone alignment is normal. No fracture. There is cartilage surface irregularity in the elbow joint. Tendons: The biceps tendon and brachialis tendon are normal. There is mild tendinopathy of the common extensor tendon and common flexor tendon. No tear. Ligaments: Radial collateral ligament, lateral ulnar collateral ligament, and ulnar collateral ligament are normal. Cubital tunnel: The ulnar nerve is normal. Fluid: There is no knee joint effusion. There is extensive subcutaneous edema posterior to the elbow, consistent with bursitis. IMPRESSION: 1. Olecranon bursitis. Discharge Plan Discharge Attending physician on discharge: Srinath
[2023-11-20] MEDS: cefTRIAXone 2 GM/NS 100 ML 2 GM/100 ML BAG IVPB (09:27)
[2023-11-20] MEDS: lisinopriL 10 MG TABLET PO (09:28)
[2023-11-20] MEDS: SIMVASTATIN 20 MG TABLET 40 MG PO (09:28)
[2023-11-20 13:06] LABS: Alanine Aminotransferase 36 U/L (6-50); Albumin Level 4.2 g/dL (3.5-5.1); Alkaline Phosphatase 66 U/L (38-126); Anion Gap 8 mmol/L (4-12); Aspartate Amino Transferase 39 U/L (17-59); Bilirubin,Total 0.7 mg/dL (0.2-1.3); Blood Urea Nitrogen 16 mg/dL (9-20); Calcium 9.2 mg/dL (8.4-10.2); Carbon Dioxide 24 mmol/L (22-30); Chloride 101 mmol/L (98-107); Estimated CRCL calculation 67 ml/min; Estimated Glomerular Filt Rate > 60; Glucose 107 mg/dL (65-110); Potassium 5.1 mmol/L (3.4-5.0); Sodium 133 mmol/L (137-145)
== END 2023-11-20 12:40 | disposition home or self-care (01) ==
LOC: ANHED 11-18 01:45 → ANH3MED 11-18 05:57
PROVIDERS: Nurse Practitioner; Admitting Provider Internal Medicine; Emergency Provider Physician Assistant; PCP Family Medicine; Visit Provider Internal Medicine
DX: L03.113 Cellulitis of right upper limb (principal); M70.21 Olecranon bursitis, right elbow; C91.10 Chronic lymphocytic leukemia of B-cell type not having achieved remission; I10 Essential (primary) hypertension; E78.5 Hyperlipidemia, unspecified; F41.9 Anxiety disorder, unspecified; M10.9 Gout, unspecified; G47.00 Insomnia, unspecified; F10.90 Alcohol use, unspecified, uncomplicated; Z79.899 Other long term (current) drug therapy
CPT/HCPCS: 36415; 73080; 73221; 76881; 80048; 80053; 80202; 82565; 85025; 85652; 86140; 87040; 87070; 87075; 87205; 96365; 96366; 96374; 96375; 96376; 99285; A9270; G0378; J0696; J1200; J2543; J2919; J3370

== ENCOUNTER 2024-02-23 09:04 | Outpatient (CLI) | payer BC, SELFPAY ==
--- NOTE | ~2024-02-23 | MR_ITS ---
Procedure: MR lumbar spine wo con Ordering provider: Vandana Suarez MD History: . M47.816 - Spondylosis without myelopathy or radiculopathy... . Comparison: November 26, 2022 Technique: MRI lumbar spine without contrast. FINDINGS: SPINAL CORD: Normal. The cord ends at the level of L1. VERTEBRAL BODIES: Normal height and alignment. No compression fracture. Normal marrow signal. DISK SPACES: Normal. L1-L2: Mild diffuse disc bulge. L2-L3: Mild diffuse disc bulge. Slight thickening of the ligamenta flava. L3-L4: Mild diffuse disc bulge. Slight thickening of the ligamenta flava. L4-L5: Moderate spinal canal stenosis. Diffuse disc bulge with bilateral thickening of the ligamenta flava. Bilateral narrowing of the foramina with root compression. L5-S1: Normal. PARASPINOUS SOFT TISSUES: A lymphadenopathy seen in the retroperitoneal area and bilateral iliac area . Further evaluation advised. IMPRESSION: No compression fracture. Moderate spinal canal stenosis at the level of L4-L5 with bilateral narrowing of the foramina and ner ve root compression. Retroperitoneal and bilateral iliac lymphadenopathy. Reviewed, dictated and finalized at location A. IMPRESSION: No compression fracture. Moderate spinal canal stenosis at the level of L4-L5 with bilateral narrowing o f the foramina and nerve root compression. Retroperitoneal and bilateral iliac lymphadenopathy.
== END 2024-02-23 09:05 ==
PROVIDERS: Visit Provider Family Medicine
DX: M47.816 Spondylosis without myelopathy or radiculopathy, lumbar region (principal)
CPT/HCPCS: 72148

== ENCOUNTER 2024-08-13 14:21 | Outpatient (CLI) | payer BC, SELFPAY ==
[2024-08-13 15:33] LABS: Influenza A QL RT-PCR Negative (Negative); Influenza B QL RT-PCR Negative (Negative); RSV RNA, RT-PCR Negative (Negative); SARS-CoV-2 RNA PCR Negative (Negative)
== END 2024-08-13 14:22 | disposition home or self-care (01) ==
LOC: ANHLAB 14:23
PROVIDERS: Visit Provider Student in an Organized Health Care Education/Training Program
DX: R05.9 Cough, unspecified (principal); J06.9 Acute upper respiratory infection, unspecified
CPT/HCPCS: 87637

== ENCOUNTER 2025-06-02 11:02 | Outpatient (CLI) | payer BC, SELFPAY ==
--- NOTE | ~2025-06-02 | CT_ITS ---
EXAMINATION: CT abdomen pelvis wo/w con DATE: 06/02/2025 11:52 INDICATION: Gross hematuria. TECHNIQUE: Computed tomography (CT) of the abdomen and pelvis was performed without and with intravenous contrast using a total of 130 mL Omnipaque-350 intravenous contrast with a double-bolus technique for simultaneous opacification of the renal parenchyma and renal collecting system. Automated exposure control and iterative reconstruction technique were employed. The dose- length product was 884.84 mGy-cm. COMPARISON: CT abdomen and pelvis 02/16/2023 FINDINGS: The visualized portions of the lung bases demonstrate mild atelectasis. No pleural effusion. The heart size is normal. There are coronary artery calcifications. There are calcifications of the aortic valve. No pericardial effusion. There is mild bilateral gynecomastia. There is diffuse hepatic steatosis. The gallbladder, spleen, pancreas, adrenal glands, and kidneys are normal. There is no urolithiasis. The ureters are well opacified and are normal. The bladder is normal. The prostate is mildly enlarged. There are no dilated loops of bowel. The appendix is normal. There are no pathologically enlarged lymph nodes. There is no free intraperitoneal fluid. There is mild thoracic and lumbar spondylosis. There is mild chronic anterior wedging of multiple thoracic vertebral bodies. IMPRESSION: 1. No etiology for hematuria. Reviewed, dictated and finalized at location E. TING FIXTURE INSTALLER
--- OUTSIDE RECORDS SUMMARY | 2025-06-02 11:06 | XMS_ITS ---
Author Organization [facility] Address [address] 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 Past Treatment and Therapy Plans No past plan information found. Lifetime Dose Tracking * Chemical Lifetime Dose Automatic Entry Manual Entr y Dose Length Product 603 mGy-cm 603 mGy-cm 0 mGy-cm Resolved Problems Problem Noted Date Diagnosed Date Resolved Date Gout 08/04/2023 05/15/2025
--- OUTSIDE RECORDS SUMMARY | 2025-06-02 11:06 | XMS_ITS | Clinical Summary ---
Author Organization [facility] [employer] [facility] Address [address] [place] [address] Care Team Providers Care Clinical Informatics Strategist Name Role Phone Vandana Suarez MD Primary Care Provider [phone] Source Comments [facility] [employer],non-owned Affiliates and Associated Physician Practices is amultiple site organization consisting of ambulatory clinics and hospital sitesin [place], [place], [place] and [place]. This disclosure is being madepursuant to the Care Everywhere program and may not contain all information available regarding this patient. Last updated 18.[facility] [employer] Allergies Active Allergy Reactions Criticality Noted Date Comments Egg Solids, Whole Other 08/27/2015 Nausea and vomiting Piperacillin Itching High 02/13/2025 ITCHY, THROAT SWELLING AFTER IV DOSE IN ED ON 11/18/23 Piperacillin Sod-Tazobactam So Itching,Swelling 11/23/2023 Throat swelling Poultry Meal Anaphylaxis High 04/26/2023 Tazobactam Itching High 02/13/2025 ITCHY, THROAT SWELLING AFTER IV DOSE IN ED ON 11/18/23 Medications * Be aware that medications may not be up to date on this document. Alwaysverify current medications with the patient. lisinopril (Prinivil; Zestril) 10 MG tablet Take 1 (one) tablet by mouth once daily Active simvastatin (Zocor) 40 MG tablet Take 1 (one) tablet by mouth at bedtime Active B Complex Vitamins CAPS Take 1 capsule by mouth once daily Active clobetasol (Temovate) 0.05 % creamIndications :Rash and other nonspecific skin eruption Apply to rash on the trunk and extremities twice daily. Use for a maximum for 2 weeks then take a 3-4 day break before resuming. Avoid the face and groin. 60 g 6 4 Active Lutein-Zeaxanthi n 25-5 MG Take 25 mg by mouth once daily Active Calquence 100 MG tabletIndication s:CLL (chronic lymphocytic leukemia) (HCC) TAKE 1 TABLET (100MG) BY MOUTH TWO TIMES A DAY 60 tablet 3 5 Active zolpidem (Ambien) 10 MG tablet Take 1 (one) tablet by mouth nightly as needed 5 Active lisinopril (Prinivil; Zestril) 5 MG tablet Take 1 (one) tablet by mouth once daily 4 Active Active Problems Problem Noted Date Diagnosed Date Recurrent epistaxis 05/15/2025 HTN (hypertension) 08/04/2023 HLD (hyperlipidemia) 08/04/2023 Chronic lymphocytic leukemia 11/22/2016 Resolved Problems Problem Noted Date Diagnosed Date Resolved Date Gout 08/04/2023 05/15/2025 Encounters Date Type Department Care Team Description 05/15/2025 2:00 PM CDT Office Visit [facility] - ENT [address] [place] [phone] Cliff Adler MD Recurrent epistaxis (Primary Dx); Deviated nasal septum 05/15/2025 Travel 04/18/2025 2:20 PM CDT Office Visit [facility] - Hematology/Oncology [address] [place] [address] Houston Orellana MD Bleeding nose (Primary Dx) 04/18/2025 2:00 PM CDT - 04/18/2025 11:59 PM CDT Hospital Encounter [facility] [address] [address] Discharge Disposition: Home or Self Care 04/18/2025 9:30 AM CDT - 04/18/2025 1:59 PM CDT Hospital Encounter [facility] [address] [address] Discharge Disposition: Home or Self Care 04/18/2025 Travel 04/17/2025 Refill [facility] [address] [place] [address] Houston Orellana MD Refill Request 04/14/2025 Orders Only [facility] - Hematology/Oncology [address] [place] [address] Nohemy Cuellar MD CLL (chronic lymphocytic leukemia) ([facility]) 03/14/2025 Telephone [facility] - Hematology/Oncology [address] [place] [address] Houston Orellana MD Medication Prior Auth Request from Last 3 Months Immunizations Immunization Administration Dates Next Due COVID MODERNA 12+ yr 50mcg/0.5mL 04/17/2023 COVID MODERNA BIVALENT 12Y+ 50MCG/0.5ML 09/15/2022,04/10/2022 MODERNA SARS-COV-2 COVID-19 VACCINE 0.25ML 11/16/2021,07/11/2021 PNEUMOCOCCAL PPV VACCINE 05/18/2016 Palivizumab 05/29/2023 TDAP (7yrs+) 11/26/2023 Zoster Hzv Vacc Recombinant Inj Im 10/01/2023, iNFLUENZA VACCINE, RECOM-COHEN, QUADR. 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[employer] Legal Sex Male 2:05 PM CDT Gender Identity Male 08/07/2023 5:22 PM SUPER[employer] Sexual Orientation Straight 08/07/2023 5: 22 PM SUPERVISOR [employer] Last Filed Vital Signs Vital Sign Reading Time Taken Comments Blood Pressure 110/72 05/15/2025 1:49 PM CDT Pulse 81 05/15/2025 1:49 PM CDT Temperature 36.7 C (98.1 F) 04/18/2025 2:31 PM CDT Respiratory Rate 20 04/18/2025 2:31 PM CDT Oxygen Saturation 96% 04/18/2025 2:31 PM CDT Inhaled Oxygen Concentration - - Weight 83 kg (183 lb) 05/15/2025 1:49 PM CDT Height 165.1 cm (5' 5) 05/15/2025 1:49 PM CDT Body Mass Index 30.45 05/15/2025 1:49 PM CDT Plan of Treatment Upcoming Encounters Date Type Department Care Team (Late st Contact Info) Description 07/30/2025 10:00 AM SUPERVISOR [employer]SEM[employer] Office Visit [facility] - Hematology/Oncology [address] [place] [address] Houston Orellana MD [address] [facility] [place] [address] Health Maintenance Due Date Last Done Comments COLOGUARD (AGES 45-75) - COLON CA SCREENING 1963 COLON MONITORING 1963 COLONOSCOPY - COLON CA SCREENING 1963 CT COLONOGRAPHY - COLON CA SCREENING 1963 Colorectal Cancer Screening 1963 FIT - COLON CA SCREENING 1963 FLEX SIG - COLON CA SCREENING 1963 HIV SCREENING 1978 HEPATITIS C SCREENING 04/28/1981 PNEUMOCOCCAL VACCINE 50+ (2 of 2 - PCV) 05/18/2017 05/18/2016 Respiratory Syncytial Virus (RSV) Vaccine Pt: or over 60 yrs (1 - Risk 60-74 years 1-dose series) 2023 DEPRESSION SCREENING 07/25/2024 COVID-19 VACCINE (2024- season) 2025 04/17/2023, 09/15/2022, 04/10/2022, Additional history exists INFLUENZA VACCINE (#1) 2025 , 04/16/2022, 04/17/2021, Additional history exists SCREENING FOR DIABETES 04/18/2028 , 01/17/2025, 09/25/2024, Additional history exists DTAP/TDAP/TD VACCINES (2 - Td or Tdap) 11/25/2033 11/26/2023 ZOSTER VACCINE Completed 10/01/2023, 05/31/2023 HEPATITIS B VACCINE Aged Out No longe r eligible based on patient's age to complete this topic HIB VACCINE Aged Out No longer eligi ble based on patient's age to complete this topic HPV VACCINE Aged Out No longer eligi ble based on patient's age to complete this topic MENINGOCOCCAL (Group B) VACCINE SHARED DECISION-MAKING Aged Out No longer eligible based on patient's age to complete this topic MENINGOCOCCAL GROUPS A/C/Y/W VACCINE Aged Out No longer eligible based on patient's age to complete this topic Procedures Procedure Name Priority Date/Time Associated Diagnosis Comments NV NASAL ENDOSCOPY,DX Routine 05/15/2025 2:31 PM CDT Recurrent epistaxis DIFFERENTIAL MANUAL STAT 04/18/2025 2 :10 PM CDT CLL (chronic lymphocytic leukemia) (HCC) LDH BLOOD STAT 04/18/2025 2:10 PM CDT CLL (chronic lymphocytic leukemia) (HCC) COMPREHENSIVE METABOLIC PANEL STAT 04/18/2025 2:10 PM CDT CLL (chronic lymphocytic leukemia) (HCC) CBC W AUTO DIFFERENTIAL STAT 04/18/2025 2:10 PM CDT CLL (chronic lymphocytic leukemia) (HCC) from Last 3 Months Results * NV NASAL ENDOSCOPY,DX (05/15/2025 2:31 PM CDT) Narrative Cliff Adler MD - 05/15/2025 2:31 PM CDT Cliff Adler MD 05/15/2025 3:42 PM Procedure: Rigid Nasal Endoscopy Anesthesia: Bilateral Nasal Cavities sprayed with lidocaine and Neosynephrine Detail: Rigid nasal endoscopy performed on the right side. We visualized the entire septum as well as the inferior turbinate, middle turbinate. We also visualized the nasopharynx. Unless mentioned below these structures were normal. No lesions or prominent vessels amenable to cautery. Nasal cavity appears essentially normal. There is some small vessels on the right anterior septum but nothing concerning. We visualized extensively on the right. EBL: none Dr. Adler was present during the procedure. Cliff Adler MD PROCEDURE/MINOR SURGICAL OR DERABLES Final Result * (ABNORMAL) DIFFERENTIAL MANUAL (04/18/2025 2:10 PM CDT) Neutrophil % 12(L) 41 - 74 % 04/19/2025 7:47 AM [facility] Lymphocyte % 85(H) 17 - 47 % 04/19/2025 7:47 AM [facility] Comment: 81% Abnormal Lymphocytes present- CLL appearing This is a corrected result. Previous result was 4 % on 04/18/2025 at 1851 CDT Eosinophil % 1 0 - 7 % 04/19/2025 7:47 AM [facility] Basophil % 2 0 - 2 % 04/19/2025 7:47 AM [facility] Other Cells % 04/19/2025 7:47 AM [facility] Comment:This is a corrected result. Previous result was 81 % on 04/18/2025 at 1851 CDT Neutrophil Absolute 3.89 1.60 - 7.50 x10E9/L 04/19/2025 7:47 AM [facility] Lymphocyte Absolute 27.54(H) 1.00 - 4.40 x10E9/L 04/19/2025 7:47 AM [facility] Comment:This is a corrected result. Previous result was 1.30 x10E9/L on 04/18/2025 at 1851 CDT Eosinophil Absolute 0.32 0.00 - 0.60 x10E9/L 04/19/2025 7:47 AM [facility] Basophil Absolute 0.65(H) 0.00 - 0.13 x10E9/L 04/19/2025 7:47 AM [facility] RBC Morphology NORMAL 04/19/2025 7:47 AM [facility] Blood BLOOD SPECIMEN / Unknown Lab Venipuncture / Unknown 04/18/2025 2:10 PM CDT 04/18/2025 2:14 PM CDT Houston Orellana MD LAB - HEMATOLOGY ORDERABLES Arnel sara Result - Final [facility] [address] [place] [address], [facility] [phone] * (ABNORMAL) CBC WITH DIFFERENTIAL (04/18/2025 2:10 PM CDT) Pathologist [facility] WBC 32.4(H) 4.0 - 10.7 x10E9/L 04/18/2025 6:51 PM CDT [facility] RBC Count 4.39 4.30 - 5.80 x10E12/L 04/18/2025 6:51 PM T [facility] Hemoglobin 12.6(L) 13.3 - 17.5 g/dL 04/18/2025 6:51 PM T [facility] Hematocrit 38.6(L) 38.7 - 51.1 % 04/18/2025 6:51 PM T [facility] MCV 87.9 80.0 - 98.0 fL 04/18/2025 6:51 PM T [facility] MCH 28.7 26.7 - 33.6 pg 04/18/2025 6:51 PM T [facility] MCHC 32.6 31.7 - 36.3 g/dL 04/18/2025 6:51 PM T [facility] RDW-CV 13.5 11.3 - 14.8 % 04/18/2025 6:51 PM T [facility] Platelet Count 198 150 - 420 x10E9/L 04/18/2025 6:51 PM T [facility] MPV 9.9 7.8 - 11.4 fL 04/18/2025 6:51 PM [facility] Blood BLOOD SPECIMEN / Unknown Lab Venipuncture / Unknown 04/18/2025 2:10 PM CDT 04/18/2025 2:14 PM CDT Houston Orellana MD LAB - HEMATOLOGY ORDERABLES Fin al Result [facility] [address] [place] [address], [facility] [phone] * (ABNORMAL) COMPREHENSIVE METABOLIC PANEL (04/18/2025 2:10 PM CDT) BUN 15 7 - 26 mg/dL 04/18/2025 2:45 PM [facility] Creatinine 1.28(H) 0.71 - 1.16 mg/dL 04/18/2025 2:45 PM [facility] Sodium 133(L) 136 - 145 mmol/L 04/18/2025 2:45 PM [facility] Potassium 3.9 3.5 - 4.5 mmol/L 04/18/2025 2:45 PM [facility] Chloride 99 98 - 107 mmol/L 04/18/2025 2:45 PM [facility] CO2 27 22 - 29 mmol/L 04/18/2025 2:45 PM [facility] Glucose 103(H) 70 - 99 mg/dL 04/18/2025 2:45 PM [facility] Calcium 8.7 8.4 - 10.2 mg/dL 04/18/2025 2:45 PM [facility] Protein Total 6.7 6.0 - 8.3 g/dL 04/18/2025 2:45 PM [facility] Albumin 4.5 3.4 - 5.0 g/dL 04/18/2025 2:45 PM [facility] Bilirubin Total 0.7 0.2 - 1.2 mg/dL 04/18/2025 2:45 PM [facility] Alkaline Phosphatase 71 40 - 150 U/L 04/18/2025 2:45 PM [facility] ALT 55 5 - 55 U/L 04/18/2025 2:45 PM [facility] AST 38(H) 5 - 34 U/L 04/18/2025 2:45 PM [facility] Anion Gap 7 6 - 16 04/18/2025 2:45 PM [facility] BUN/Creatinine Ratio 12 7 - 23 04/18/2025 2:45 PM CDT [facility] Osmolality Calculated 277 275 - 295 mOsm/kg 04/18/2025 2:45 PM CDT [facility] Albumin/Globulin Ratio 2.0 1.1 - 2.3 04/18/2025 2:45 PM CDT [facility] eGFR by CKD-EPI 64(L) >=90 mL/min/1.7 3 m2 04/18/2025 2:45 PM CDT [facility] Comment:Estimated Glomerular Filtration Rate (eGFR) calculated using the CKD-EPI Creatinine Equation (2020), per the National Kidney Foundation and [place] [employer] of Nephrology recommendations. Blood BLOOD SPECIMEN / Unknown Lab Venipuncture / Unknown 04/18/2025 2:10 PM CDT 04/18/2025 2:14 PM CDT Houston Orellana MD LAB - CHEMISTRY ORDERABLES Sana l Result Performing Organization Address City/[facility]/ZIP Co de Phone Number [address] [address], [place] [phone] * [facility] BLOOD (04/18/2025 2:10 PM CDT) [facility] Total 227 125 - 243 Units/L 04/18/2025 2:45 PM CDT [facility] Blood BLOOD SPECIMEN / Unknown Lab Venipuncture / Unknown 04/18/2025 2:10 PM CDT 04/18/2025 2:14 PM CDT Houston Orellana MD LAB - CHEMISTRY ORDERABLES Sana l Result [address] [address], [place] [phone] from Last 3 Months Insurance ANTHEM Care Teams Clinical Informatics Strategist Relationship Specialty Start Date End Date Vandana Suarez MD [address] [place] [address] PCP - General Family Medicine 04/26/23
--- OUTSIDE RECORDS SUMMARY | 2025-06-02 11:06 | XMS_ITS | Encounter Summary ---
Author Organization [facility] Address 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 Gender Identity Male 04/11/2024 9:18 PM CDT Sexual Orientation Straight 04/11/2024 9: 18 PM CDT documented as of this encounter Last Filed Vital Signs Vital Sign Reading Time Taken Comments Blood Pressure 118/80 04/24/2004 10:00 AM CDT Pulse - - Temperature 37.1 C (98.8 F) 04/24/2004 10:00 AM CDT Respiratory Rate - - Oxygen Saturation - - Inhaled Oxygen Concentration - - Weight 72.1 kg (159 lb) 04/24/2004 10:00 AM CDT Height 175.3 cm (5' 9) 04/24/2004 10:00 AM CDT Body Mass Index 23.48 04/24/2004 10:00 AM CDT documented in this encounter Plan of Treatment Not on file documented as of this encounter Visit Diagnoses Not on filedocumented in this encounter Care Teams Base Remover Relationship Specialty Start Date End Date Vandana Suarez MD [address] [place] [id number] PCP - General Family Practice 01/14/23 documented as of this encounter
--- OUTSIDE RECORDS SUMMARY | 2025-06-02 11:06 | XMS_ITS | Clinical Summary ---
Author Organization [facility] Administrative Offices Address [address] [place] [address] Care Team Providers Care Psychiatric Cns Name Role Phone Vandana Suarez MD Primary Care Provider [phone] Allergies Active Allergy Reactions Criticality Noted Date Comments Poultry Abdominal Pain,Anaphylaxis,Arrhythmia,Diarrhea,H chris,Nausea and Vomiting,Photosensitivity,Rash,Shortne ss of Breath/Wheezing High 1963 Medications lisinopriL 5 mg tablet Take 5 mg by mouth daily. Active simvastatin 40 mg tablet Take 40 mg by mouth daily. Active ibuprofen 400 mg tablet Take 400 mg by mouth every 6 hours as needed for Pain, Mild. Active Active Problems Problem Noted Date Diagnosed Date Posttraumatic stress disorder 04/24/2004 Acute sinusitis, unspecified 04/24/2004 Encounters Date Type Department Care Team Description 04/19/2025 Abstract [facility] Neurosurgery - [facility] [address] [place] [address] Antoinette Izquierdo MD 03/13/2025 External Device Data ST[facility] ABSTRACTION Provider, Abstract from Last 3 Months Family History Medical History Relation Name Comments Blood Clots Father Cancer Father Hypertension Father No Known Problems Maternal Grandfather No Known Problems Maternal Grandmother Cancer Mother Hypertension Mother No Known Problems Paternal Grandfather No Known Problems Paternal Grandmother Relation Name Status Comments Father Maternal Grandfather Maternal Grandmother Mother Paternal Grandfather Paternal Grandmother Social History Tobacco Use Types Packs/Day Years Used Date Smoking Tobacco: Never Smokeless Tobacco: Never Tobacco Cessation:Counseling Given: Not Answered Alcohol Use Standard Drinks/Week Comments Yes 0 (1 standard drink = 0.6 oz pur e alcohol) Sex and Gender Information Value Date Recorded Sex Assigned at Male 04/11/2024 9:18 PM CDT 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 Gender Identity Male 04/11/2024 9:18 PM CDT Sexual Orientation Straight 04/11/2024 9: 18 PM CDT Last Filed Vital Signs Vital Sign Reading Time Taken Comments Blood Pressure 132/80 04/11/2024 1:09 PM CDT Pulse 78 04/11/2024 1:09 PM CDT Temperature 36.7 C (98.1 F) 04/11/2024 1:09 PM CDT Respiratory Rate - - Oxygen Saturation 98% 04/11/2024 1:09 PM CDT Inhaled Oxygen Concentration - - Weight 80.4 kg (177 lb 3.2 oz) 04/11/2024 1:09 P M CDT Height 172.7 cm (5' 8) 04/11/2024 1:09 PM CDT Body Mass Index 26.94 04/11/2024 1:09 PM CDT Plan of Treatment Health Maintenance Due Date Last Done Comments DTAP/TDAP/TD VACCINES (1 - Tdap) 1982 COLORECTAL SCREENING 2008 Colorectal Cancer Screening 2008 FIT-DNA Q 3 years 2008 FIT/FOBT Q 1 year 2008 Flex Sig/CT Colonography Q 5 years 2008 ZOSTER VACCINE (1 of 2) 2013 INFLUENZA VACCINE (#1) 2025 RSV VACCINE (60+ or ) (1 - 1-dose 75+ series) 2038 Insurance [employer] BLUE ACCESS/TRUE BLUE PPO Care Teams Psychiatric Cns Relationship Specialty Start Date End Date Vandana Suarez MD [address] [place] [id number] PCP - General Family Practice 01/14/23
[2025-06-02 11:35] LABS: Estimated Glomerular Filt Rate 51
== END 2025-06-02 11:03 | disposition home or self-care (01) ==
PROVIDERS: PCP Family Medicine; Visit Provider Urology
DX: R31.0 Gross hematuria (principal)
CPT/HCPCS: 74178; Q9967